=== PATIENT | female | born 1950 ===

== ENCOUNTER 2019-12-11 10:34 | Emergency (ER) | payer OTHER ==
[~2019-12-11] VITALS: Ht 154.9 cm; Wt 63.0 kg
[2019-12-11] MEDS ORDERED: ZESTRIL10 M1 (10:48)
[2019-12-11] MEDS ORDERED: LIPITOR20 MG (10:48)
[2019-12-11] MEDS ORDERED: TAMS0.4C PO (15:59)
[2019-12-11] MEDS ORDERED: KETO10TA2 PO (15:59)
== END 2019-12-11 16:48 | disposition home or self-care (01) ==
LOC: ER 10:34
DX: N13.2 Hydronephrosis with renal and ureteral calculous obstruction (principal); D72.828 Other elevated white blood cell count; R31.29 Other microscopic hematuria; R10.12 Left upper quadrant pain; Z03.818 Encounter for observation for suspected exposure to other biological agents ruled out